=== PATIENT | female | born 1955 | race Caucasian/White ===

== ENCOUNTER → 2017-01-08 | Outpatient (CLI) | payer OTHER ==
[2017-01-08 11:48] LABS: Appearance,Urine Clear (Clear); Bilirubin,Urine Negative (Negative); Glucose,Urine (UA) Negative (Negative); Ketones,Urine Trace (Negative); Leukocyte Esterase,Urine Negative (Negative); Nitrite,Urine Negative (Negative); Protein,Urine Negative (Negative); Specific Gravity,Urine 1.008 (1.001-1.035); UA Billing (MACRO vs. MICRO) CHEM; Urobilinogen,Urine <2.0 mg/dL (<2.0)
== END ==
LOC: LABWHC1 11:17
PROVIDERS: ATTEND Urology
DX: R31.29 Other microscopic hematuria (principal)
CPT/HCPCS: 81003

== ENCOUNTER → 2019-05-19 | Outpatient (CLI) | payer OTHER ==
--- NOTE | 2019-05-19 14:21 | XR ---
EXAMINATION TYPE: XR abdomen 1V DATE OF EXAM: 05/19/2019 COMPARISON: None HISTORY: Pain TECHNIQUE: One view abdominal series FINDINGS: The osseous structures are intact. The bowel gas pattern is nonspecific. Diffuse osteopenia noted. A rthropathy of the hip joints. A millimeter calcification overlying the right kidney. IMPRESSION: 1. Nonspecific abdomen. Correlate for tiny 2 mm right renal calculus.
== END | disposition home or self-care (01) ==
LOC: RADXRMAIN 13:15
PROVIDERS: ATTEND Family Medicine
DX: N20.0 Calculus of kidney (principal); N12 Tubulo-interstitial nephritis, not specified as acute or chronic
CPT/HCPCS: 74018

== ENCOUNTER → 2019-05-20 | Outpatient (CLI) | payer OTHER ==
--- NOTE | 2019-05-20 11:49 | US ---
EXAMINATION TYPE: US kidneys/renal and bladder DATE OF EXAM: 05/20/2019 COMPARISON: CT 12/28/15 CLINICAL HISTORY: R31.9 Hematuria, N12 Pyelonephritis. Lower back pain x 2 days EXAM MEASUREMENTS: Right Kidney: 10.4 x 5.1 x 3.8 cm Left Kidney: 10.9 x 5.2 x 4.9 cm Post Void Residual Volume: 21.0 mL Right Kidney: Dilated renal pelvis = 1.9 cm. And dilated renal calyces. Mild right hydronephrosis. No stones or masses seen. Left Kidney: Dilated renal calyces, largest in lower pole. Mild left hydronephrosis. No stones or mas ses seen. Bladder: wnl Bilateral Jets seen: Yes Normal Post Void Residual: Yes No nephrolithiasis is seen. No masses are identified. The urinary bladder is anechoic. Bilateral u reteral jets are seen. IMPRESSION: Mild bilateral hydronephrosis, right greater than left. No etiology of the obstructing pr ocess seen.
== END | disposition home or self-care (01) ==
LOC: RADUSWWP 10:59
PROVIDERS: ATTEND Family Medicine
DX: N13.30 Unspecified hydronephrosis (principal); N12 Tubulo-interstitial nephritis, not specified as acute or chronic
CPT/HCPCS: 76770

== ENCOUNTER → 2021-01-04 | Outpatient (CLI) | payer MEDICARE, OTHER ==
--- NOTE | 2021-01-07 07:49 | BD ---
EXAMINATION TYPE: Axial Bone Density DATE OF EXAM: 01/04/2021 COMPARISON: 09.12.2013 CLINICAL HISTORY: 65 YR OLD FEMALE.....ICD-10 CODE: Z78.0 POST MENOPAUSAL Height: 67 Weight: 144 FRAX RISK QUESTIONS: NOTHING TO NOTE HERE RISK FACTORS HISTORY OF: Family History of Osteoporosis: YES, BUT NO FX KNOWN Postmenopausal woman: YES, AT AGE 52 YRS OLD Lost more than 2 inches in height since high school: YES Hyperparathyroidism: NO Adrenal Insufficiency: NO MEDICATIONS: Thyroid Medications: YES, SYNTHROID, FOR ABOUT 30 YRS Additional Medications: ZOLOFT, HX OF CHEMO AND RADIATION, FOR BREAST CANCER, STATIN FOR CHOLESTEROL, VIT D Additional History: HX OF RT BREAST CANCER, CHOLESTEROL, EXAM MEASUREMENTS: Bone mineral densitometry was performed using the [employer] System. Bone mineral density as measured about the Lumbar spine is: ----- L1-L4(G/cm2): 0.933 T Score Values are as follows: ----- L1: -2.3 ----- L2: -2.1 ----- L3: -1.9 ----- L4: -2.1 ----- L1-L4: -2.1 Bone mineral density has: Decreased -8.9% since study of: 09.12.2013 Bone mineral density about the R hip (g/cm2): 0.737 Bone mineral density about the L hip (g/cm2): 0.757 T Score values are as follows: -----R Neck: -2.1 -----L Neck: -2.3 -----R Total: -2.2 -----L Total: -2.0 Bone mineral density has: Decreased -17.3% since study of: 09.12.2013 FRAX%s: THERE IS A 12.2% CHANCE FOR A MAJOR OSTEOPOROTIC FX AND A 2.6% FOR HIP......PROBABILITY FO R FX IN 10 YRS TIME IMPRESSION: Osteopenia NOTE: T-SCORE=SD OF THE YOUNG ADULT MEAN.
== END | disposition home or self-care (01) ==
LOC: RADBDWWP 12:27
PROVIDERS: ATTEND Family Medicine
DX: Z78.0 Asymptomatic menopausal state (principal); M85.89 Other specified disorders of bone density and structure, multiple sites; Z82.62 Family history of osteoporosis
CPT/HCPCS: 77080

== ENCOUNTER → 2022-04-03 | Outpatient (CLI) | payer MEDICARE, OTHER ==
[~2022-04-03] MED LIST: SODIUM CHLORIDE 0.9% 500 ML 500 ML in EMPTY BAG 1 BAG IV PRN; ZOLEDRONIC ACID 5 MG in SODIUM CHLORIDE 0.9% 100 ML IV NR
[2022-04-03 13:30] VITALS: BP 145/83; PULSE 73; RESP 16; TEMP 98.2
== END ==
LOC: PROCWHC3 12:03
PROVIDERS: ATTEND Internal Medicine
DX: M81.0 Age-related osteoporosis without current pathological fracture (principal); Z91.041 Radiographic dye allergy status; Z88.0 Allergy status to penicillin; Z91.013 Allergy to seafood
CPT/HCPCS: 96365; J3489

== ENCOUNTER → 2023-01-05 | Outpatient (CLI) | payer MEDICARE, OTHER ==
--- NOTE | 2023-01-05 13:58 | BD ---
EXAMINATION TYPE: Axial Bone Density DATE OF EXAM: 01/05/2023 CLINICAL HISTORY: 67 years old Female. ICD-10 CODE: M85.851 DISRD OF BONE SENSITY Height: 67in Weight: 191lb FRAX RISK QUESTIONS: Secondary Osteoporosis: RISK FACTORS HISTORY OF: Family History of Osteoporosis: unknown Active: yes Postmenopausal woman: yes MEDICATIONS: Thyroid Medications: Which medication: Synthroid How Long: about 20 years Osteoporosis Medications: Which medication: Reclast infusion 1 treatment How Lon Additional Medications: cholesterol med, calcium, vitamin d Additional History: Br Ca about 2003 EXAM MEASUREMENTS: Bone mineral densitometry was performed using the [employer] System. Bone mineral density as measured about the Lumbar spine is: ----- L1-L4(G/cm2): 0.945 T Score Values are as follows: ----- L1: -2.5 ----- L2: -1.8 ----- L3: -1.8 ----- L4: -1.9 ----- L1-L4: -2.0 Z Score Values are as follows: ----- L1: -1.5 ----- L2: -0.8 ----- L3: -0.9 ----- L4: -1.0 ----- L1-L4: -1.0 Bone mineral density has: Increased 1.3% since study of: 01-04-21 Bone mineral density about the R hip (g/cm2): 0.766 Bone mineral density about the L hip (g/cm2): 0.773 T Score values are as follows: -----R Neck: -1.9 -----L Neck: -2.0 -----R Total: -1.9 -----L Total: -1.9 Z Score values are as follows: -----R Neck: -0.7 -----L Neck: -0.8 -----R Total: -1.1 -----L Total: -1.0 Bone mineral density has: Increased 3.1% since study of: 01-04-21 FRAX%s: The graph provided illustrates a 11.3% chance for a major osteoporotic fx and a 2% chance for the hips probability for fx in 10 years time. IMPRESSION: Osteoporosis (T Score less than -2.5). There is increased fracture risk and therapy is usually indicated based on age. Re-Screen 1-2 years. NOTE: T-SCORE=SD OF THE YOUNG ADULT MEAN.
== END | disposition home or self-care (01) ==
LOC: RADBDWWP 13:17
PROVIDERS: ATTEND Internal Medicine
DX: M81.0 Age-related osteoporosis without current pathological fracture (principal); M85.89 Other specified disorders of bone density and structure, multiple sites
CPT/HCPCS: 77080

== ENCOUNTER → 2024-01-04 | Outpatient (CLI) | payer MEDICARE, OTHER ==
--- NOTE | 2024-01-04 16:40 | US ---
EXAMINATION TYPE: US carotid duplex BILAT DATE OF EXAM: 01/04/2024 COMPARISON: NONE CLINICAL INDICATION: Female, 68 years old with history of I65.23 OCCLUSION AND STENOSIS OF BILATERAL CAROTID; TECHNIQUE: Carotid duplex ultrasound examination. Indirect Doppler criteria was utilized. FINDINGS: EXAM MEASUREMENTS: RIGHT: Peak Systolic Velocity (PSV) cm/sec ----- Right CCA: 61.6 ----- Right ICA: 79.2 ----- Right ECA: 53.3 ICA/CCA ratio: 1.3 RIGHT: End Diastole cm/sec ----- Right CCA: 17.1 ----- Right ICA: 24.5 ----- Right ECA: 10.2 LEFT: Peak Systolic Velocity (PSV) cm/sec ----- Left CCA: 64.0 ----- Left ICA: 72.5 ----- Left ECA: 66.6 ICA/CCA ratio: 1.1 LEFT: End Diastole cm/sec ----- Left CCA: 14.9 ----- Left ICA: 23.4 ----- Left ECA: 9.8 VERTEBRALS (direction of flow): Right Vertebral: Antegrade Left Vertebral: Antegrade Rhythm: Normal No significant stenosis IMPRESSION: Less than 50% stenosis of the bilateral carotid bifurcations. Criteria for Assigning % of Stenosis / Diameter reduction (Estimation based on the indirect measurements of the internal carotid artery velocities (ICA PSV). 1. Normal (no stenosis)=ICA PSV < 125 cm/s: ratio < 2.0: ICA EDV<40 cm/s. 2. Less than 50% stenosis=ICA PSV < 125 cm/s: ratio < 2.0: ICA EDV<40 cm/s. 3. 50 to 69% stenosis=ICA PSV of 125 to 230 cm/s: ration 2.0 ? 4.0: ICA EDV 40-100 cm/s. 4. Greater than 70% stenosis to near occlusion= ICA PSV > 230 cm/s: ratio > 4.0: ICA EDV > 100 cm/s. 5. Near occlusion= ICA PSV velocities may be low or undetectable: variable ratio and ICA EDV. 6. Total occlusion=unable to detect flow.
--- NOTE | 2024-01-05 07:48 | CA ---
Transthoracic Echo Report Name: Alvina Ramirez Age: 68 Gender: F : 1955 Exam Date: 01/04/2024 15:50 Exam Location: [facility] Ht (in): 68 Wt (lb): 200 Ordering Physician: Susie Panchal MD Attending/Referring Phys: Susie Panchal MD Hostel Manager Pam Quinn RDCS Procedure CPT: Indications: I65.23 OCCLUSION AND STENOSIS OF BILATERAL CAROTID Cardiac Hx: Technical Quality: Fair Contrast 1: Total Dose (mL): Contrast 2: Total Dose (mL): MEASUREMENTS (Male / Female) Normal Values 2D ECHO LV Diastolic Diameter PLAX 4.4 cm 4.2 - 5.9 / 3.9 - 5.3 cm LV Systolic Diameter PLAX 2.9 cm IVS Diastolic Thickness 1.0 cm 0.6 - 1.0 / 0.6 - 0.9 cm LVPW Diastolic Thickness 0.9 cm 0.6 - 1.0 / 0.6 - 0.9 cm LV Relative Wall Thickness 0.4 RV Internal Dim ED PLAX 3.2 cm LVOT Diameter 2.1 cm LV Diastolic Volume MOD BP 85.1 cm??? 67 - 155 / 56 - 104 cm??? LV Systolic Volume MOD BP 34.6 cm??? 22 - 58 / 19 - 49 cm??? LV Ejection Fraction MOD BP 59.4 % >= 55 % LV Cardiac Index MOD BP 2083.3 cm???/min???m??? LV Diastolic Volume MOD 4C 88.3 cm??? LV Systolic Volume MOD 4C 38.5 cm??? LV Ejection Fraction MOD 4C 56.4 % LV Cardiac Index MOD 4C 2050.3 cm???/min???m??? LV Diastolic Length 4C 7.8 cm LV Systolic Length 4C 6.8 cm LV Diastolic Volume MOD 2C 81.2 cm??? LV Systolic Volume MOD 2C 31.0 cm??? LV Ejection Fraction MOD 2C 61.8 % LV Cardiac Index MOD 2C 2067.6 cm???/min???m??? LV Diastolic Length 2C 7.9 cm LV Systolic Length 2C 6.8 cm LA Volume 33.0 cm??? 18 - 58 / 22 - 52 cm??? LA Volume Index 15.6 cm???/m??? 16 - 28 cm???/m??? Ascending Aorta Diameter 3.6 cm DOPPLER AV Peak Velocity 116.4 cm/s AV Peak Gradient 5.4 mmHg AV Mean Velocity 80.2 cm/s AV Mean Gradient 2.9 mmHg AV Velocity Time Integral 23.5 cm LVOT Peak Velocity 99.6 cm/s LVOT Peak Gradient 4.0 mmHg LVOT Velocity Time Integral 19.3 cm LVOT Stroke Volume 67.7 cm??? LVOT Stroke Volume Index 33.1 ml/m??? LVOT Cardiac Index 2790.0 cm???/min???m??? AV Area Cont Eq vti 2.9 cm??? AV Area Cont Eq pk 3.0 cm??? MV Area PHT 5.6 cm??? Mitral E Point Velocity 34.0 cm/s Mitral A Point Velocity 66.1 cm/s Mitral E to A Ratio 0.5 MV Deceleration Time 134.3 ms PV Peak Velocity 78.3 cm/s PV Peak Gradient 2.5 mmHg FINDINGS Left Ventricle Left ventricular ejection fraction is estimated at 55-60 %. Left ventricular cavity size normal. Left ventricular wall thickness normal. No obvious regional wall motion abnormalities. Right Ventricle Normal right ventricular size and function. Unable to estimate the right ventricular systolic pressure. Right Atrium Normal right atrial size. Left Atrium Normal left atrial size. Mitral Valve Structurally normal mitral valve. No evidence for mitral valve prolapse. No mitral stenosis. Trace mitral regurgitation. Aortic Valve Trileaflet aortic valve. No aortic valve stenosis or regurgitation. Tricuspid Valve Structurally normal tricuspid valve. No tricuspid stenosis. Trace tricuspid regurgitation. Pulmonic Valve Pulmonic valve not well visualized. No pulmonic stenosis. No pulmonic regurgitation. Pericardium No pericardial effusion. Aorta Normal size aortic root and proximal ascending aorta. CONCLUSIONS Technically difficult study for interpretation Normal LV systolic function Previewed by: Dr. Edouard Grimes MD (Electronically Signed) Final Date: 05 January 2024 07:47
== END ==
LOC: RADUSWWP 15:17
PROVIDERS: ATTEND Internal Medicine
DX: I65.23 Occlusion and stenosis of bilateral carotid arteries (principal); I25.10 Atherosclerotic heart disease of native coronary artery without angina pectoris
CPT/HCPCS: 93306; 93880

== ENCOUNTER → 2024-04-15 | Outpatient (CLI) | payer MEDICARE, OTHER ==
[2024-04-15] MEDS: ZOLEDRONIC ACID 5 MG in SODIUM CHLORIDE 0.9% 100 ML IV NR (13:42)
[2024-04-15] MEDS: SODIUM CHLORIDE 0.9% 500 ML 500 ML in EMPTY BAG 1 BAG IV PRN (13:42)
[2024-04-15 13:48] VITALS: BP 120/78; PULSE 75; RESP 16; TEMP 97.6
== END ==
LOC: PROCWHC3 13:00
PROVIDERS: ATTEND Internal Medicine
DX: M81.0 Age-related osteoporosis without current pathological fracture (principal)
CPT/HCPCS: 96365

== ENCOUNTER → 2025-01-10 | Outpatient (CLI) | payer MEDICARE, OTHER ==
--- NOTE | 2025-01-12 15:29 | BD ---
EXAMINATION TYPE: Axial Bone Density DATE OF EXAM: 01/10/2025 CLINICAL HISTORY: 69 years old Female. ICD-10 CODE: M85.852 DISRD OF BONE DENSITY AND STRUCTURE, LEF T , Additional History: Height: 68 Weight: 204.0 FRAX RISK QUESTIONS: Alcohol (3 or more units per day): no Family History (Parent hip fracture): no Glucocorticoids (More than 3mos): no (Ex: prednisone, prednisolone, methylprednisolone, dexamethasone, and hydrocortisone). History of Fracture in Adulthood: no Secondary Osteoporosis: 1. Type 1 Diabetes: no 2. Hyperthyroidism: no 3. Menopause before 45: yes 4. Malnutrition: no 5. Chronic liver disease: no Rheumatoid Arthritis: no Current Tobacco Use: no RISK FACTORS HISTORY OF: Surgery to Spine/Hip(right/left)/Wrist (right/left): right hip replaced When: 2022 MEDICATIONS: Thyroid Medications: synthroid How Lon + years Osteoporosis Medications: currently getting Reclast injections Which medication: How Lon years EXAM MEASUREMENTS: Bone mineral densitometry was performed using the [employer] System. Bone mineral density as measured about the Lumbar spine is: ----- L1-L4(G/cm2): 0.986 T Score Values are as follows: ----- L1: -2.5 ----- L2: -1.1 ----- L3: -1.6 ----- L4: -1.5 ----- L1-L4: -1.6 Z Score Values are as follows: ----- L1: -1.8 ----- L2: -0.4 ----- L3: -.8 ----- L4: -0.8 ----- L1-L4: -0.9 Bone mineral density has: increased 4.3 % since study of: 01.05.2023 Bone mineral density about the L hip (g/cm2): 0.802 T Score values are as follows: -----L Neck: -2.1 -----L Total: -1.6 Z Score values are as follows: -----L Neck: -1.0 -----L Total: -0.8 Bone mineral density has: increased 3.8 % since study of: 01.05.2023 FRAX%s: The graph provided illustrates a 12.1% chance for a major osteoporotic fx and a 2.5% chance f or the hips probability for fx in 10 years time. IMPRESSION: Osteoporosis (T Score less than -2.5). There is increased fracture risk and therapy is usually indicated based on age. Re-Screen 1-2 years. NOTE: T-SCORE=SD OF THE YOUNG ADULT MEAN. [facility], , 01/12/2025 3:27 PM
== END | disposition home or self-care (01) ==
LOC: RADBDWWP 15:10
PROVIDERS: ATTEND Internal Medicine
DX: M85.852 Other specified disorders of bone density and structure, left thigh (principal); Z78.0 Asymptomatic menopausal state; M81.0 Age-related osteoporosis without current pathological fracture
CPT/HCPCS: 77080